=== PATIENT | female | born 1985 | race Caucasian/White ===

== ENCOUNTER 2017-01-08 17:08 | Outpatient (CLI) | payer OTHER | END 2017-01-08 17:09 | disposition home or self-care (01) | DX: Z53.9 Procedure and treatment not carried out, unspecified reason (principal) ==

== ENCOUNTER 2017-02-06 16:21 | Outpatient (CLI) | payer OTHER | END 2017-02-06 16:22 | disposition home or self-care (01) | DX: R76.11 Nonspecific reaction to tuberculin skin test without active tuberculosis (principal) ==